=== PATIENT | female | born 1990 | race Caucasian/White ===

== ENCOUNTER 2017-01-27 05:35 | Emergency (ER) | payer BC ==
[~2017-01-27] VITALS: Ht 165.1 cm; Wt 63.5 kg
[2017-01-27] MEDS ORDERED: BUPR300T52 PO (05:55)
[2017-01-27] MEDS ORDERED: CLON2TAB PO (05:55)
[2017-01-27] MEDS ORDERED: GABA800T2 PO (05:55)
--- NOTE | 2017-01-27 07:10 | NUR ---
DR SCHAFFER AT THE BEDSIDE FOR EVAL AND EXAM.
--- NOTE | 2017-01-27 07:48 | NUR ---
PT LEFT ER FOR CT.
--- NOTE | 2017-01-27 08:00 | NUR ---
PT BACK FROM CT, RESTING IN BED W/ BOTH EYES CLOSED.
[2017-01-27 08:21] LABS: BASOPHILS # (AUTO) 0.1 K/uL (0.0-0.2); BASOPHILS % (AUTO) 0.7 % (0.0-2.0); EOSINOPHILS # (AUTO) 0.1 K/uL (0.0-0.7); EOSINOPHILS % (AUTO) 1.1 % (0.0-7.0); HEMATOCRIT 35.5 % (37.0-47.0); HEMOGLOBIN 11.9 g/dL (12.0-16.0); LYMPHOCYTES # (AUTO) 3.7 K/uL (0.8-4.8); LYMPHOCYTES % (AUTO) 31.9 % (20.5-51.5); MEAN CORPUSCULAR HEMOGLOBIN 28.2 uug (27.0-31.0); MEAN CORPUSCULAR HGB CONC 34 g/dL (32.0-37.0); MEAN CORPUSCULAR VOLUME 83.9 fL (81.0-99.0); MONOCYTES # (AUTO) 1.1 K/uL (0.1-1.30); MONOCYTES % (AUTO) 9.4 % (0.0-11.0); NEUTROPHILS # (AUTO) 6.7 K/uL (1.8-8.9); NEUTROPHILS % (AUTO) 56.9 % (38.5-71.5); PLATELET COUNT (AUTO) 391 K/uL (150-450); RED BLOOD CELL COUNT(AUTO) 4.23 MIL/uL (4.20-5.40); RED CELL DISTRIBUTION WIDTH 15.4 % (11.5-14.5); WHITE BLOOD COUNT (AUTO) 11.7 K/uL (4.0-11.2)
[2017-01-27 08:27] LABS: CALCIUM 8.8 mg/dL (8.5-10.1); CARBON DIOXIDE 29 mmol/L (21-32); CHLORIDE 104 mmol/L (98-107); CREATININE 0.6 mg/dL (0.6-1.3); GFR 122 mL/min (>60); GLUCOSE 78 mg/dL (74-106); POTASSIUM 3.4 mmol/L (3.5-5.1); SODIUM SERUM 138 mmol/L (136-145); UREA NITROGEN, BLOOD 13 mg/dL (7-18)
[2017-01-27 08:33] LABS: ALANINE AMINOTRANSFERASE 18 U/L (14-59); ALBUMIN 3.8 g/dL (3.4-5.0); ALKALINE PHOSPHATASE 59 U/L (50-136); ASPARTATE AMINOTRANSFERASE 14 U/L (15-37); BILIRUBIN,DIRECT 0.1 mg/dL (0.0-0.2); BILIRUBIN,TOTAL 0.2 mg/dL (0.2-1.0); TOTAL PROTEIN, SERUM 7.2 g/dL (6.4-8.2)
[2017-01-27 08:35] LABS: ACETAMINOPHEN < 2.0 ug/mL (10-30)
[2017-01-27 08:40] LABS: AMMONIA < 10 umol/L (11-32)
[2017-01-27 08:41] LABS: THYROID STIMULATING HORMONE 2.334 mIU/mL (0.358-3.740)
[2017-01-27 09:25] LABS: ETHANOL < 3 MG/DL (0-0)
--- NOTE | 2017-01-27 12:04 | NUR ---
CALLED [facility] FOR PT'S ADMIN, PER ORDER.
--- NOTE | 2017-01-27 12:14 | NUR ---
Patient eloped from facility. ER physician notified.
== END 2017-01-27 12:17 | disposition left against medical advice (07) ==
LOC: ER 06:11
DX: R41.82 Altered mental status, unspecified (principal); M25.562 Pain in left knee; M25.561 Pain in right knee; M54.2 Cervicalgia; F19.10 Other psychoactive substance abuse, uncomplicated; I10 Essential (primary) hypertension; F32.9 Major depressive disorder, single episode, unspecified; F41.9 Anxiety disorder, unspecified; F10.20 Alcohol dependence, uncomplicated; V89.2XXA Person injured in unspecified motor-vehicle accident, traffic, initial encounter; Y93.89 Activity, other specified; Y99.8 Other external cause status; Y92.89 Other specified places as the place of occurrence of the external cause
CPT/HCPCS: 36415; 70030-TC; 70450; 71010; 72125; 84443; 84703; 85025; 85730; 93005; A4663; G0480-TC; G6040-TC